=== PATIENT | female | born 1975 | race Caucasian/White ===

== ENCOUNTER 2019-09-16 10:20 | Emergency (ER) | payer BC, OTHER ==
[~2019-09-16 10:20] MED LIST: CHLO25CA10 PO; OMEP20CA15 PO; ONDA-103 PO
[2019-09-16 10:37] VITALS: BP 106/66
== END 2019-09-16 11:01 ==
LOC: ER 10:20
DX: Z04.3 Encounter for examination and observation following other accident (principal); F10.920 Alcohol use, unspecified with intoxication, uncomplicated; Z90.710 Acquired absence of both cervix and uterus; Z79.899 Other long term (current) drug therapy; V49.88XA Car occupant (driver) (passenger) injured in other specified transport accidents, initial encounter; Y93.89 Activity, other specified; Y92.413 State road as the place of occurrence of the external cause; Y99.9 Unspecified external cause status; Y90.9 Presence of alcohol in blood, level not specified
CPT/HCPCS: 99283